=== PATIENT | male | born 1985 | race Caucasian/White ===

== ENCOUNTER → 2019-06-29 15:20 | Outpatient (ROUT) | payer OTHER, SELFPAY ==
[2019-06-29 15:45] LABS: Alanine Aminotransferase 22 IU/L (21-72); Albumin 4.7 g/dL (3.5-5.0); Albumin Globulin Ratio 1.6 (1.0-2.8); Alkaline Phosphatase 66 U/L (38-126); Aspartate Aminotransferase 25 IU/L (17-59); BUN Creatinine Ratio 16.3 (6-22); Bilirubin Total 0.6 mg/dL (0.2-1.3); Blood Urea Nitrogen 13 mg/dL (9-20); Calcium 9.9 mg/dL (8.4-10.2); Carbon Dioxide 28 mmol/L (22-32); Chloride 102 mmol/L (98-107); Estimated Glomerular Filt Rate > 60.0 mL/min (>60); Globulin 2.9 g/dL (1.7-4.1); Glucose 79 mg/dL (70-100); HEMOLYSIS < 15 (0-50); Potassium 4.2 mmol/L (3.4-5.1); Sodium 142 mmol/L (137-145); Total Protein 7.6 g/dL (6.3-8.2)
== END ==
PROVIDERS: PCP Physician Assistant; Visit Provider Internal Medicine
DX: M79.672 Pain in left foot (principal)
CPT/HCPCS: 80053; 84550

== ENCOUNTER 2021-03-12 12:21 | Emergency (ER) | payer OTHER, SELFPAY ==
[2021-03-12 13:00] VITALS: BP 142/95; PULSE 105; RESP 17; TEMP 37.2; O2SAT 99; BMI 26.6
--- NOTE | 2021-03-12 13:06 | DI.CT.S_ITS ---
PROCEDURE: CT HEAD/BRAIN WO CON INDICATIONS: head injury TECHNIQUE: Noncontrast 4.5 mm thick angled axial sections acquired from the foramen magnum to the vertex, with coronal and sagittal reformats. For radiation dose reduction, the following was used: automated exposure control, adjustment of mA and/or kV according to patient size. COMPARISON: None. FINDINGS: Image quality: Excellent. CSF spaces: Basal cisterns are patent. No extra-axial fluid collections. Ventricles are normal in size and shape. Brain: No midline shift. No intracranial masses or hemorrhage. Adams-white matter interface is normal. Skull and face: Calvarium and visualized facial bones are intact, without suspicious lesions. Sinuses: Visualized sinuses and mastoids are clear. IMPRESSION: 1. No acute intracranial process. Dictated by: Nanci Oliva M.D. on 03/12/2021 at 14:13 Approved by: Nanci Oliva M.D. on 03/12/2021 at 14:14
--- NOTE | 2021-03-12 13:06 | DI.CT.S_ITS ---
PROCEDURE: CT CERVICAL SPINE WO CON INDICATIONS: head injury TECHNIQUE: Noncontrast 3 mm thick sections acquired from the skull base to the T4 level. Sagittal and coronal reformats were then constructed. For radiation dose reduction, the following was used: automated exposure control, adjustment of mA and/or kV according to patient size. COMPARISON: None. FINDINGS: Image quality: Excellent. Bones: No fractures or dislocations. Visualized superior ribs are intact. Cervical straightening is present. Minimal scattered degenerative disc space narrowing is noted. Soft tissues: Prevertebral soft tissues are normal in thickness. No paravertebral hematomas. No apical pneumothoraces. IMPRESSION: No visualized fracture. Dictated by: Nanci Oliva M.D. on 03/12/2021 at 14:08 Approved by: Nanci Oliva M.D. on 03/12/2021 at 14:12
[2021-03-12 16:21] VITALS: BP 141/89; PULSE 109; RESP 18; O2SAT 100
--- NOTE | 2021-03-12 17:21 | ED.HEATRA ---
HPI - Head Injury General Chief complaint: Head Injury Stated complaint: Head Injury, Confussion Time Seen by Provider: 03/12/21 17:21 Source: patient Mode of arrival: Ambulatory Limitations: no limitations History of Present Illness HPI Narrative: This is a 35-year-old male who comes emergency department with complaint of head injury. Patient [place], fell onto his side striking the side of his head on the edge of the concrete but reamed and then had a cardiac fall on the other side of his head. Patient states he did not have a loss of consciousness but he did feel sort of stunned and not himself initially afterwards. Does have an abrasion on his cheek. He denies any other injuries. He denies nausea or vomiting. He denies any neck or back pain currently. He denies any numbness, tingling or weakness in the extremities. States he does typically drink several alcoholic drinks daily. He had had 2 or 3 drinks this morning prior to the episode. He has not had any additional since. Patient states he is on currently daily medications. He is not anticoagulated. He denies any surgeries. No drug allergies. Patient does not believe his tetanus is up-to-date. Patient arrived via private auto with his . Related Data Home Medications Medication Instructions Recorded Confirmed allopurinol 100 mg PO DAILY 03/12/21 03/12/21 Allergies Allergy/AdvReac Type Severity Reaction Status Date / Time No Known Drug Allergies Allergy Verified 03/12/21 13:05 Review of Systems Review of Systems ROS Unobtainable: All systems reviewed & are unremarkable except as noted in HPI and below Patient History Social History Smoking Status: Current every day smoker Smoking Status: Current every day smoker alcohol intake frequency: 3 or more drinks per day Substance Use Type: marijuana Exam Narrative Exam Narrative: GEN: Patient appears in mild distress. HEAD: No evidence of trauma, no raccoon/Dunaway sign. NECK: Nontender, painless range of motion, trachea midline Negative Nexus criteria, there is no line tenderness, distracting injury, altered mental status, neuro deficit,+ recent EtOH this am. EYES: PERRLA, EOMI ENT: External inspection normal except an abrasion on the right cheek, trachea is midline, TM's are normal no hemotypanum, Nares are clear, no septal hematoma, no dental or oral injury, airway is normal and with normal occlusion, No bony tenderness RESP: Chest is nontender and has symmetric movement, no ecchymosis, breath sounds are normal no crackles, wheezes or rales CVS: Heart sounds are normal, no murmur noted, No JVD. ABG/GI: Nontender, soft, normal bowel sounds, no distention, no organomegaly. NEURO: Oriented AOx3, neuro is grossly intact, sensation and motor is normal all 4 extremities moving, cranial nerves II through XII are intact, GCS is 15 PSYCH: Normal mood and affect SKIN: Intact, warm and dry, no crepitus and without decubitus BACK: No CVA tenderness, no vertebral tenderness, no step-off's, no crepitus EXT: Atraumatic, hips are nontender, no pedal edema, normal color and temperature, normal range of motion of extremities with normal tendon exam, 2+ pulses in all four extremities Initial Vital Signs Initial Vital Signs: Vital Signs Temperature 99 F 03/12/21 13:00 Pulse Rate 105 H 03/12/21 13:00 Respiratory Rate 17 03/12/21 13:00 Blood Pressure 142/95 H 03/12/21 13:00 Pulse Oximetry 99 03/12/21 13:00 Scores GCS Kali coma scale eye opening: Spontaneous Broadus coma scale verbal response: Orientated Kali coma scale motor response: Obey commands Kali coma scale total score: 15 Course Orders Ordered: ED Orders 03/12/21 13:06 CT cervical spine wo con Stat CT head/brain wo con Stat Discontinued Medications Diphtheria/Tetanus/Acell Pertussis (Tet,Diph,Pertuss(Acell),Vac/Pf 0.5 Ml Syringe) 0.5 ml IM .ONCE ONE Stop: 03/12/21 17:30 Last Admin: 03/12/21 17:43 Dose: 0.5 ml Documented by: [email or web address] Vital Signs Vital signs: Vital Signs - 8 hr 03/12/21 13:00 03/12/21 16:21 03/12/21 17:51 Temperature 99 F Pulse Rate 105 H 109 H 98 H Respiratory Rate 17 18 16 Blood Pressure 142/95 H 141/89 H 143/93 H Pulse Oximetry 99 100 99 MDM - Head Injury Imaging Data CT scan - head: Radiologist's Impression: [address] [id number] Scan ReportSigned Patient: David Swift EMR#: [id number]: [id number]:[id number]/Sex: 35 / MDate of Service: 03/12/21Loc: EDAccession Number: [id number] Procedure: CT head/brain wo con Ordering Provider: Carline Stover D.O. PROCEDURE: CT HEAD/BRAIN WO CON INDICATIONS: head injury TECHNIQUE: Noncontrast 4.5 mm thick angled axial sections acquired from the foramen magnum to the vertex, with coronal and sagittal reformats. For radiation dose reduction, the following was used: automated exposure control, adjustment of mA and/or kV according to patient size. COMPARISON: None. FINDINGS: Image quality: Excellent. CSF spaces: Basal cisterns are patent. No extra-axial fluid collections. Ventricles are normal in size and shape. Brain: No midline shift. No intracranial masses or hemorrhage. Adams-white matter interface is normal. Skull and face: Calvarium and visualized facial bones are intact, without suspicious lesions. Sinuses: Visualized sinuses and mastoids are clear. IMPRESSION: 1. No acute intracranial process. Dictated by: Nanci Oliva M.D. on 03/12/2021 at 14:13 Approved by: Nanci Oliva M.D. on 03/12/2021 at 14:[address]: Radiologist's Impression: [address] [id number] Scan ReportSigned Patient: David Swift EMR#: [id number]: [id number]:[id number]/Sex: 35 / MDate of Service: 03/12/21Loc: EDAccession Number: [id number] Procedure: CT cervical spine wo con Ordering Provider: Carline Stover D.O. PROCEDURE: CT CERVICAL SPINE WO CON INDICATIONS: head injury TECHNIQUE: Noncontrast 3 mm thick sections acquired from the skull base to the T4 level. Sagittal and coronal reformats were then constructed. For radiation dose reduction, the following was used: automated exposure control, adjustment of mA and/or kV according to patient size. COMPARISON: None. FINDINGS: Image quality: Excellent. Bones: No fractures or dislocations. Visualized superior ribs are intact. Cervical straightening is present. Minimal scattered degenerative disc space narrowing is noted. Soft tissues: Prevertebral soft tissues are normal in thickness. No paravertebral hematomas. No apical pneumothoraces. IMPRESSION: No visualized fracture. Dictated by: Nanci Oliva M.D. on 03/12/2021 at 14:08 Approved by: Nanci Oliva M.D. on 03/12/2021 at 14:12 [facility] Narrative Medical decision making narrative: This is a 35-year-old male comes emergency department with complaint of head injury. Patient likely has a concussion although this could be complicated a little bit by alcohol use. Patient does not appear to be currently intoxicated. Head CT and C-spine were negative and he has been monitored for hours after his head CT and several hours beyond that after his initial injury. Patient is clinically cleared him the department. His tetanus was updated. Return precautions were discussed. Patient likely does have some concussive symptoms. And plan for wound care for his abrasion. Discharge Plan Departure Patient Disposition: Home Clinical Impression: Head injury, Activities involving rowing, canoeing, kayaking, rafting and tubing Instructions: Concussion, DI for Closed Head Injury Activity Restrictions/Additional Instructions: Follow-up with your physician in the next 2-3 days for recheck if you are not having improvement of your symptoms. You may have a concussion. Wound Care: Keep wound(s) clean and dry. Wash daily with soap and water only. Do not use over the counter products (alcohol or peroxide)on the wounds unless instructed by a physician. If wound condition worsens (increased/expanding redness, developing fluid blisters, or worsening pain), either contact your doctor for an urgent re-assessment , or return to the Emergency Department. Return for severe headaches, passing out, or worsening neck, back pain, chest pain or shortness of breath, new numbness, tingling or weakness, and a bed walk or move safely, difficulty with speech, persistent vomiting or other new or worsening symptoms. Prescriptions: No Action allopurinol 100 mg tablet 100 mg PO DAILY RF: 0 Referrals: Miscellaneous,Doctor[facility] [Primary Care Provider] -
[2021-03-12] MEDS: TET,DIPH,PERTUSS(ACELL),VAC/PF 0.5 ML SYRINGE IM (17:43)
[2021-03-12 17:51] VITALS: BP 143/93; PULSE 98; RESP 16; O2SAT 99
== END 2021-03-12 17:58 | disposition home or self-care (01) ==
PROVIDERS: Emergency Provider Emergency Medicine
DX: S09.90XA Unspecified injury of head, initial encounter (principal); Y93.16 Activity, rowing, canoeing, kayaking, rafting and tubing; Z23 Encounter for immunization
CPT/HCPCS: 70450; 72125; 90471; 99284; 90715

== ENCOUNTER → 2021-07-13 08:48 | Outpatient (CLI) | payer OTHER, SELFPAY ==
--- NOTE | 2021-07-13 | DI.US.S_ITS ---
PROCEDURE: US ABDOMEN COMPLETE INDICATIONS: ABNORMAL LFTS TECHNIQUE: Real-time scanning was performed of the abdominal and retroperitoneal organs, with image documentation. COMPARISON: None. FINDINGS: Liver: Liver is normal in size . Heterogeneous echotexture. The portal vein appears patent. Gallbladder: No gallbladder wall thickening, pericholecystic fluid, or shadowing gallstones. The common bile duct measures 3.6 mm. Biliary ducts: Intrahepatic bile ducts are non-dilated. Extrahepatic bile duct caliber measures 3.6 mm. Normal is 6-7 mm or less in diameter, or 10 mm or less post-cholecystectomy. Pancreas: Visualized portions of the pancreas are sonographically normal. Spleen: Spleen is normal in size and homogeneous in echotexture. Kidneys: Kidneys are normal in size and echotexture. Right kidney measures 9.9 cm long; left kidney measures 10.3 cm long. No hydronephrosis or nephrolithiasis. No solid masses. Aorta: Visualized aorta is normal in caliber at less than 3 cm. Iliacs: Proximal common iliac arteries are normal in caliber at less than 2.5 cm. IVC: Intrahepatic inferior vena cava is patent. Miscellaneous: No free abdominal fluid. IMPRESSION: No acute sonographic abnormality. Dictated by: Dioni Parish M.D. on 07/13/2021 at 9:24 Approved by: Dioni Parish M.D. on 07/13/2021 at 9:26
[2021-07-14 05:31] LABS: HBsAg Screen Negative (Negative); Hepatitis A Antibody IgM Negative (Negative); Hepatitis B Core Antibody IgM Negative (Negative); Hepatitis C Antibody <0.1 s/co ratio (0.0-0.9)
== END ==
PROVIDERS: PCP Physician Assistant; Referring Provider Physician Assistant; Visit Provider Physician Assistant
DX: R79.89 Other specified abnormal findings of blood chemistry (principal)
CPT/HCPCS: 36415; 76700; 80074

== ENCOUNTER → 2023-01-18 08:26 | Outpatient (CLI) | payer OTHER, SELFPAY ==
[2023-01-18 10:13] LABS: Alanine Aminotransferase 51 IU/L (<50); Albumin 4.9 g/dL (3.5-5.0); Albumin Globulin Ratio 1.7 (1.0-2.8); Alkaline Phosphatase 52 U/L (38-126); Aspartate Aminotransferase 34 IU/L (17-59); BUN Creatinine Ratio 15.1 (6-22); Bilirubin Total 1.5 mg/dL (0.2-1.3); Blood Urea Nitrogen 11 mg/dL (9-20); Calcium 9.3 mg/dL (8.4-10.2); Carbon Dioxide 29 mmol/L (22-32); Chloride 101 mmol/L (98-107); Cholesterol 224 mg/dL (140-199); Estimated Glomerular Filt Rate > 60 mL/min (>60); Globulin 2.9 g/dL (1.7-4.1); Glucose 107 mg/dL (70-100); HDL Cholesterol 54 mg/dL (40-60); HEMOLYSIS < 15 (0-50); LDL Cholesterol Calculated 140 mg/dL (<100); Sodium 137 mmol/L (137-145); Total Protein 7.8 g/dL (6.3-8.2); Triglycerides 152 mg/dL (35-150); Uric Acid 4.3 mg/dL (3.5-8.5)
[2023-01-18 10:17] LABS: Add Manual Diff / Slide Review NO; Basophils Absolute Auto 0 /uL (0-100); Basophils Percent Auto 0.6 % (0-2); Eosinophils Absolute Auto 100 /uL (0-450); Eosinophils Percent Auto 2.1 % (2-4); Hematocrit 44.3 % (41-53); Hemoglobin 15.1 g/dL (13.5-17.5); Lymphocytes Absolute Auto 1300 /uL (1100-4500); Lymphocytes Percent Auto 28.8 % (25-40); Mean Corpuscular HGB Conc 34.1 % (30-36); Mean Corpuscular Hemoglobin 31.3 PG (26-34); Mean Corpuscular Volume 91.6 fL (80-100); Monocytes Absolute Auto 300 /uL (0-900); Monocytes Percent Auto 6.6 % (3-14); Neutrophils Absolute Auto 2800 /uL (1500-7000); Neutrophils Percent Auto 61.9 % (50-75); Platelet Count 283 X10^3/uL (150-400); Red Blood Cell Count 4.84 X10^6/uL (4.5-5.9); White Blood Cell Count 4.6 X10^3/uL (4.5-11.0)
[2023-01-18 10:29] LABS: Vitamin D 25 Hydroxy (D3) 25.4 ng/mL (30.0-100.0)
[2023-01-18 10:42] LABS: TSH w/ Reflex to FT4 3.35 uIU/mL (0.47-4.68)
[2023-01-18 11:19] LABS: Folate 14.2 ng/mL (2.76-20.0); Vitamin B12 251 pg/mL (239-931)
[2023-01-31 12:30] LABS: Vitamin B1 164.3 nmol/L (66.5-200.0)
== END ==
PROVIDERS: PCP Family Medicine; Referring Provider Family Medicine; Visit Provider Family Medicine
DX: M10.9 Gout, unspecified (principal); R03.0 Elevated blood-pressure reading, without diagnosis of hypertension; F10.90 Alcohol use, unspecified, uncomplicated; Z13.0 Encounter for screening for diseases of the blood and blood-forming organs and certain disorders involving the immune mechanism; Z13.220 Encounter for screening for lipoid disorders; Z13.21 Encounter for screening for nutritional disorder; Z13.29 Encounter for screening for other suspected endocrine disorder
CPT/HCPCS: 36415; 80053; 80061; 82306; 82607; 82746; 84425; 84443; 84550; 85025